=== PATIENT | female | born 1975 | race Caucasian/White ===

== ENCOUNTER → 2022-10-04 07:56 | Outpatient (CLI) | payer BC, SELFPAY ==
--- NOTE | ~2022-10-04 | MR_ITS ---
MRI of the right shoulder Technique: Axial proton-density fat-sat images, coronal proton density fat-sat and T2 fat-sat images, and sagittal T1-weighted and T2 fat-sat images were acquired. Clinical History: Pain, rotator cuff tear Findings: There is minimal degenerative changes AC joint. Coracoclavicular, coracoacromial, and corac ohumeral ligaments are intact. There is moderate to severe supraspinatus and infraspinatus tendinosis. No partial or full-thickness tear evident. Subscapularis tendon is intact with mild to moderate tendinosis. Tendon of the long hea d of the biceps is intact. There is probable superior labral tear, without definite anterior or posterior extension. Inferior humeral ligament is intact. No degenerative change of the glenohumeral joint. Minimal glenoh umeral joint effusion present, with more prominent fluid distention of the subscapularis recess. Mini mal fluid present in the subacromial/subdeltoid bursa. No muscle atrophy or edema. Impression: Moderate to advanced rotator cuff tendinosis without definite partial or full-thickness tear. Probable superior labral tear. Small amount of glenohumeral joint fluid, as detailed above. Reviewed, dictated and finalized at location . [employer] MACHINE [employer]PERATOR Impression: Moderate to advanced rotator cuff tendinosis without definite partial or full-t hickness tear. Probable superior labral tear. Small amount of glenohumeral joint fluid, as detailed above.
== END ==
PROVIDERS: PCP Family Medicine
DX: M75.81 Other shoulder lesions, right shoulder (principal)
CPT/HCPCS: 73221